=== PATIENT | female | born 2000 | race Caucasian/White ===

== ENCOUNTER 2024-05-15 15:08 | Emergency (ER) | payer OTHER, SELFPAY ==
[2024-05-15 15:19] VITALS: BP 92/53; PULSE 67; RESP 16; TEMP 37.2; O2SAT 99; BMI 25.2
--- NOTE | 2024-05-15 16:15 | ED_ITS ---
HPI - GI Bleed <Wilfredo Tomlinson PA-C - Last Filed: 05/16/24 15:15> General Chief complaint: GI Bleed Stated complaint: blood in stool x90 days, getting worse Time Seen by Provider: 05/15/24 16:11 Source: patient Mode of arrival: Family Vehicle History of Present Illness HPI Narrative: 23-year-old female with past medical history hemorrhoids, constipation presents to the ED with an episode of rectal bleeding with a bowel movement earlier today. Patient endorses that she has been did for several years, has hemorrhoids, has to strain considerably in order to pass stools. Patient states that she has sometimes seen blood in her stools, however this morning she saw a larger amount of blood. Patient states that she has not done much else for her constipation other than drink warm water. Patient has not tried any laxatives. Patient denies fever, chills, chest pain, shortness of breath, nausea, vomiting, diarrhea, lightheadedness, dizziness, syncope. Patient also notes that her constipation is worse around her monthly period. Related Data Previous Rx's Medication Instructions Recorded hydrocortisone acetate 25 mg 25 mg HI BID 6 days #12 ea 05/15/24 rectal suppository Review of Systems <Wilfredo Tomlinson PA-C - Last Filed: 05/16/24 15:15> Constitutional Constitutional: Denies chills, Denies fatigue, Denies fever(s), Denies frequent falls, Denies lethargy and Denies weakness Eyes Eyes: Denies change in vision, Denies eye discharge, Denies irritation and Denies loss of vision ENT Ears, Nose, Mouth, and Throat: Denies change in voice, Denies dizziness, Denies neck pain, Denies sore throat and Denies throat swelling Cardiovascular Cardiovascular: Denies chest pain, Denies irregular heart rhythm, Denies lightheadedness, Denies palpitations, Denies dyspnea, Denies dyspnea on exertion and Denies orthopnea Respiratory Respiratory: Denies cough, Denies dyspnea, Denies dyspnea on exertion and Denies wheezing Gastrointestinal Gastrointestinal: Denies abdominal pain, Reports hematochezia, Denies change in bowel habits, Reports constipation, Denies diarrhea, Denies nausea and Denies vomiting Musculoskeletal Musculoskeletal: Denies neck pain and Denies numbness Integumentary/Breasts Skin/Breast: Denies pruritus, Denies erythema, Denies rash and Denies wounds Neurologic Neurologic: Denies behavioral changes, Denies confusion, Denies dizziness, Denies frequent falls, Denies loss of vision, Denies numbness and Denies weakness Psychiatric Psychiatric: Denies anxiety, Denies behavioral changes, Denies confusion, Denies depression, Denies homicidal ideation and Denies suicidal ideation Endocrine Endocrine: Denies fatigue, Denies flushing and Denies palpitations Hematologic/Lymphatic Hematologic/Lymphatic: Denies easy bruising Allergic/Immunologic Allergic/Immunologic: Denies urticaria, Denies throat swelling and Denies wheezing Exam <Wilfredo Tomlinson PA-C - Last Filed: 05/16/24 15:15> Narrative Exam Narrative: Const General:?cooperative, healthy appearing and comfortable [facility] Head:?normal to inspection Ears:?hearing grossly normal bilaterally Nose:?external nose normal Face and sinus:?normal facial exam and sinuses nontender Mouth:?oral mucosae normal Throat:?posterior oropharynx normal Eyes General:?appearance normal, both eyes and all related structures Neck Neck:?normal visual inspection and no lymphadenopathy noted Resp Effort & Inspection:?normal respiratory effort Auscultation:?clear to auscultation bilaterally Cardio Rate:?regular rate Rhythm:?regular rhythm GI Abdomen is soft, nondistended, nontender to palpation. Rectal exam deferred. Neuro General:?patient alert, patient awake and patient oriented x3 Initial Vital Signs Initial Vital Signs: Vital Signs Temperature 98.9 F 05/15/24 15:19 Pulse Rate 67 05/15/24 15:19 Respiratory Rate 16 05/15/24 15:19 Blood Pressure 92/53 L 05/15/24 15:19 Pulse Oximetry 99 05/15/24 15:19 Oxygen Delivery Method Room Air 05/15/24 15:19 <Chelsey Steve DO - Last Filed: 05/16/24 15:44> Initial Vital Signs Initial Vital Signs: Vital Signs Temperature 98.9 F 05/15/24 15:19 Pulse Rate 67 05/15/24 15:19 Respiratory Rate 16 05/15/24 15:19 Blood Pressure 92/53 L 05/15/24 15:19 Pulse Oximetry 99 05/15/24 15:19 Oxygen Delivery Method Room Air 05/15/24 15:19 Course <Wilfredo Tomlinson PA-C - Last Filed: 05/16/24 15:15> Vital Signs Vital signs: Vital Signs - 8 hr 05/15/24 15:19 Temperature 98.9 F Pulse Rate 67 Respiratory Rate 16 Blood Pressure 92/53 L Pulse Oximetry 99 Oxygen Delivery Method Room Air <Chelsey Steve DO - Last Filed: 05/16/24 15:44> Vital Signs Vital signs: Vital Signs - 8 hr 05/15/24 15:19 Temperature 98.9 F Pulse Rate 67 Respiratory Rate 16 Blood Pressure 92/53 L Pulse Oximetry 99 Oxygen Delivery Method Room Air MDM - GI Bleed <Wilfredo Tomlinson PA-C - Last Filed: 05/16/24 15:15> MDM Narrative Medical decision making narrative: 23-year-old female with past medical history hemorrhoids, constipation presents to the ED with an episode of rectal bleeding with a bowel movement earlier today. History and symptoms are consistent with bleeding hemorrhoids chronic constipation. No concern for anemia given the small amount of bleeding. Counseled patient on addressing the constipation to address the bleeding in the hemorrhoids. Recommend increased hydration, increased fiber intake. Recommend trialing MiraLax nightly as well as Metamucil. Prescribed hydrocortisone suppositories for the hemorrhoids. Recommend follow-up with the PCP. ED return precautions discussed with patient. Patient verbalized understanding. Medical records reviewed: Yes Discharge Plan Departure Patient Disposition: Home Clinical Impression: Hemorrhoids Qualifiers: Hemorrhoid type: unspecified Qualified Code(s): K64.9 - Unspecified hemorrhoids Constipation Qualifiers: Constipation type: unspecified constipation type Qualified Code(s): K59.00 - Constipation, unspecified Instructions: DI for Hemorrhoids, DI for Constipation Activity Restrictions/Additional Instructions: You were evaluated in the ED today for rectal bleeding. Your symptoms are most consistent with uncontrolled constipation that is leading to swollen and painful hemorrhoids. You are being prescribed hydrocortisone suppositories that you can use rectally twice a day for 6 days. This will help shrink the hemorrhoids and alleviate the pain. It is critically important to address your constipation so you do not have to strain so much to pass stool. It is the straining during defecation that is causing these hemorrhoids. You may take MiraLax nightly which is available at all drug stores. It is important for you to drink 1.5-2 L of water every day, along with increasing your fiber intake. You may also take Metamucil which is also available in drug stores as an increased source of fiber. Please establish care with a primary care provider as soon as possible for further evaluation and treatment. Return to the ED if you have worsening symptoms. Prescriptions: New hydrocortisone acetate 25 mg suppository 25 mg HI BID 6 Days Qty: 12 0RF Referrals: Miscellaneous,Doctor, MD [Primary Care Provider] - Stand Alone Forms: Patient Portal/API/Survey ED Sign-out <Chelsey Steve DO - Last Filed: 05/16/24 15:44> Cosign ED Attending Diane Attestation: I was available for consultation.
== END 2024-05-15 16:50 | disposition home or self-care (01) ==
PROVIDERS: Emergency Provider Student in an Organized Health Care Education/Training Program
DX: K64.9 Unspecified hemorrhoids (principal); K59.00 Constipation, unspecified
CPT/HCPCS: 99281

== ENCOUNTER 2024-06-24 20:48 | Emergency (ER) | payer OTHER, SELFPAY ==
[2024-06-24 21:01] VITALS: BP 103/66; PULSE 79; RESP 16; TEMP 36.6; O2SAT 97; BMI 25.2
[2024-06-24 21:51] LABS: Influenza A - CEPHEID Flu A NEGATIVE (NEGATIVE); Influenza B - CEPHEID Flu B NEGATIVE (NEGATIVE); Respiratory Syncytial Virus Negative (Negative)
[2024-06-24 21:56] LABS: COVID-19 CEPHEID 4-PLEX PCR Negative (Negative)
--- NOTE | 2024-06-24 22:27 | ED.URI ---
HPI - URI/Sore Throat General Chief Complaint: Upper Respiratory Symptoms Stated Complaint: chills, nausea, cough, back px, MCDONALD neck and ear px Time Seen by Provider: 06/24/24 22:27 Source: patient Mode of arrival: Ambulatory History of Present Illness HPI Narrative: 23-year-old female without any significant past medical history comes into the ED from home for evaluation of flu-like symptoms ongoing and persistent for approximately 5 days. 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 She denies any actual chest pain denies any nausea vomiting abdominal pain or any other GI/ symptoms time. Related Data Previous Rx's Medication Instructions Recorded albuterol sulfate 90 mcg/actuation 2 inh inhalation QID PRN shortness 06/24/24 breath activated powder inhaler of breath or wheezing #1 ea methylprednisolone 4 mg tablets in 4 mg PO DAILY #21 ea 06/24/24 a dose pack (Medrol (Esau)) Allergies Allergy/AdvReac Type Severity Reaction Status Date / Time No Known Drug Allergies Allergy Verified 06/24/24 21:07 Review of Systems Review of Systems Narrative: General: Denies fever, chills, weight loss HEENT: Denies headache, eye drainage, eye irritation, head trauma, sore throat, voice change Cardiovascular: Denies any chest pain, palpitations, shortness of breath, tachycardia Respiratory: Positive cough, denies shortness of breath wheeze stridor GI/: Denies any abdominal pain, nausea, vomiting, diarrhea, bright red blood per rectum, melanotic stools, urinary frequency, urinary retention, dysuria, hematuria MSK: Positive myalgias, denies swelling Skin: Denies any rashes, lesions, discoloration Neuro: Denies any headache, lightheadedness, dizziness, fainting, weakness Psych: Denies SI/HI Patient History Social History Smoking Status: Never smoker Smoking Status: Never smoker Exam Initial Vital Signs Initial Vital Signs: Vital Signs Temperature 97.8 F 06/24/24 21:01 Pulse Rate 79 06/24/24 21:01 Respiratory Rate 16 06/24/24 21:01 Blood Pressure 103/66 06/24/24 21:01 Pulse Oximetry 97 06/24/24 21:01 Oxygen Delivery Method Room Air 06/24/24 21:01 Course Orders Ordered: ED Orders 06/24/24 21:08 Covid-19 + FLU A/B + RSV - PCR Stat 06/24/24 22:43 CXR [XR chest 2V] Stat Vital Signs Vital signs: Vital Signs - 8 hr 06/24/24 21:01 Temperature 97.8 F Pulse Rate 79 Respiratory Rate 16 Blood Pressure 103/66 Pulse Oximetry 97 Oxygen Delivery Method Room Air MDM - URI/Sore Throat Differential Diagnosis Differential diagnosis: Likely other (COVID, flu, RSV, pneumonia) Lab Data Labs: Lab Results 06/24/24 Range/Units 21:08 SARS-CoV-2 (PCR) Negative (Negative) Influenza A (RT-PCR) Flu a negative (NEGATIVE) Influenza B (RT-PCR) Flu b negative (NEGATIVE) RSV (PCR) Negative (Negative) Imaging Data Chest x-ray: Radiologist's Impression: [place] [address] XRay Report Signed Patient: Yvonne Parrish MR#: [id number] : 2000 Acct:[id number] Age/Sex: 23 / F Date of Service: 06/24/24 Loc: ED Accession Number: [id number] Procedure: XR chest 2V Ordering Provider: Burke Cohen D.O. PROCEDURE: XR CHEST 2V INDICATIONS: cough TECHNIQUE: 2 views of the chest were acquired. COMPARISON: None. FINDINGS: Surgical changes and devices: None. Lungs and pleura: No dense airspace disease or pleural effusions. Mediastinum: Normal heart size Bones and chest wall: Unremarkable IMPRESSION: No acute radiographic abnormality. MDM Narrative Medical decision making narrative: 23-year-old female without any significant past medical history presents for flu-like symptoms ongoing persistent for past 5 days. Respiratory viral panel was negative, chest x-ray without any signs of pneumonia. However given the fact that patient having persistent cough we will treat for bronchitis for symptomatic relief. Patient not requiring any supplemental oxygen, has been afebrile the entire time here in the emergency department. She was given strict return precautions, she verbalized understanding of this and agrees to being discharged home with outpatient follow up with primary care. Discharge Plan Departure Patient Disposition: Home Clinical Impression: Bronchitis Instructions: DI for Bronchiolitis Activity Restrictions/Additional Instructions: Please follow up with the primary care doctor Please read the discharge instructions sheet carefully and bring all papers to all doctor follow-up visits, as it may contain information that your doctor may want to see. Disease processes change and evolve, if your symptoms worsen or if you develop any new symptoms that are concerning to you please return for evaluation. Your evaluation today does not show any evidence of any life-threatening/serious illnesses requiring admission to the hospital or surgery. Please follow-up with your doctor for re-evaluation in approximately 1 day. Seek immediate medical attention for any worrisome symptoms. *If you do not have a primary care provider please contact the [facility] Resource line at [phone]. They will ask some questions about your medical history and help get you set up with a doctor in the community. Prescriptions: New methylprednisolone [Medrol (Esau)] 4 mg tablets,dose pack 4 mg PO DAILY Qty: 21 0RF albuterol sulfate 90 mcg/actuation aerosol powdr breath activated 2 inh inhalation QID PRN (Reason: shortness of breath or wheezing) Qty: 1 0RF Referrals: Miscellaneous,Doctor, MD [Primary Care Provider] - Stand Alone Forms: Patient Portal/API/Survey
--- NOTE | 2024-06-24 22:43 | DI.RAD.S_ITS ---
PROCEDURE: XR CHEST 2V INDICATIONS: cough TECHNIQUE: 2 views of the chest were acquired. COMPARISON: None. FINDINGS: Surgical changes and devices: None. Lungs and pleura: No dense airspace disease or pleural effusions. Mediastinum: Normal heart size Bones and chest wall: Unremarkable IMPRESSION: No acute radiographic abnormality. Dictated by: Pavan Merino M.D. on 06/24/2024 at 22:59 Approved by: Pavan Merino M.D. on 06/24/2024 at 22:59
[2024-06-24 23:51] VITALS: BP 99/61; PULSE 67; RESP 14; TEMP 36.8; O2SAT 98
== END 2024-06-24 23:52 | disposition home or self-care (01) ==
PROVIDERS: Emergency Provider Student in an Organized Health Care Education/Training Program
DX: J21.9 Acute bronchiolitis, unspecified (principal); M54.2 Cervicalgia; M54.9 Dorsalgia, unspecified
CPT/HCPCS: 0241U; 71046; 99281; 99283